=== PATIENT | female | born 1980 | race Caucasian/White ===

== ENCOUNTER 2017-10-21 12:24 | Inpatient (IN) | payer MEDICAID ==
[2017-10-21] MEDS: LACTATED RINGER'S 1,000 ML IV (14:14)
[2017-10-21] MEDS: AMPICILLIN 2 GM/NS (PMX) 100 ML IV (14:21)
[2017-10-21] MEDS ORDERED: CARBOPROST 250 MCG INJ IM ×2 (14:30→17:30)
[2017-10-21] MEDS ORDERED: BUTORPHANOL 2 MG INJ IV (14:30)
[2017-10-21] MEDS ORDERED: IBUPROFEN 600 MG TAB PO (14:30)
[2017-10-21] MEDS ORDERED: OXYTOCIN 30 UNITS/LR 500 ML IV ×2 (14:30→17:30)
[2017-10-21] MEDS ORDERED: MISOPROSTOL 200 MCG TAB PR ×2 (14:30→17:30)
[2017-10-21] MEDS ORDERED: METHYLERGONOVINE 0.2 MG INJ IM ×2 (14:30→17:30)
[2017-10-21 14:37] LABS: ADD MAN DIFF? NO
[2017-10-21 14:39] LABS: BASOPHILS % 0.2 % (0.0-2.0); EOSINOPHILS % 0.3 % (0.0-7.0); HEMATOCRIT 35.2 % (37.0-47.0); HEMOGLOBIN 12.6 g/dl (12.0-16.0); LYMPHOCYTES # 2.3 10^3/ul (0.8-2.9); LYMPHOCYTES % 20.5 % (15.0-51.0); MEAN CORPUSCULAR HEMOGLOBIN 31.3 pg (29.0-33.0); MEAN CORPUSCULAR HGB CONC 35.8 g/dl (32.0-37.0); MEAN CORPUSCULAR VOLUME 87.3 fl (82.0-101.0); MONOCYTE # 0.4 10^3/ul (0.3-0.9); MONOCYTES % 3.6 % (0.0-11.0); NEUTROPHIL # 8.2 10^3/ul (1.6-7.5); NEUTROPHILS % 74.9 % (39.0-77.0); PLATELET COUNT 321 10^3/UL (140-415); RED BLOOD COUNT 4.03 10^6/ul (4.20-5.40); RED CELL DISTRIBUTION WIDTH 13.2 % (11.5-14.5)
[2017-10-21] MEDS: OXYTOCIN 30 UNITS/LR 500 ML IV ×3 (14:45→20:54)
[2017-10-21] MEDS: LIDOCAINE 1% (MPF) 30 ML INJ INJ (14:48)
[2017-10-21 14:53] LABS: INR 0.85; PROTIME 11.7 Sec (11.9-14.9); PT RATIO 0.9
[2017-10-21 14:54] LABS: PARTIAL THROMBOPLASTIN TIME 31.1 Sec (25.0-35.0)
[2017-10-21 15:03] LABS: RAPID PLASMA REAGIN NONREACTIVE (NR)
[2017-10-21 15:52] LABS: HEPATITIS B SURFACE ANTIGEN NEGATIVE (NEGATIVE)
[2017-10-21 16:54] LABS: HIV 1&2 ANTIBODY NEGATIVE (NEGATIVE)
[2017-10-21] MEDS: LACTATED RINGER'S 1,000 ML IV* (17:20)
[2017-10-21] MEDS ORDERED: DIPHENHYDRAMINE 25 MG CAP PO (17:30)
[2017-10-21] MEDS ORDERED: ACETAMINOPHEN 325 MG TAB PO (17:30)
[2017-10-21] MEDS ORDERED: ZOLPIDEM 5 MG TAB PO (17:30)
[2017-10-21] MEDS ORDERED: HYDROCODONE/APAP (5/325) TAB PO (17:30)
[2017-10-21 17:54] LABS: AMPHETAMINE/METHAMPHETAMINE Negative (NEGATIVE); BARBITURATES Negative (NEGATIVE); BENZODIAZEPINES Negative (NEGATIVE); CANNABINOIDS Negative (NEGATIVE); COCAINE Negative (NEGATIVE); OPIATES Negative (NEGATIVE)
[2017-10-21] MEDS: BENZOCAINE 20% 56 ML SPRAY TOP (18:07)
[2017-10-21] MEDS: IBUPROFEN 800 MG TAB PO ×2 (18:07→23:45)
[2017-10-21] MEDS: WITCH HAZEL/GLYCERIN PAD PR (18:07)
[2017-10-21] MEDS: LANOLIN 7 GM TUBE TOP (18:08)
[2017-10-21] MEDS ORDERED: AMPICILLIN 1 GM/NS (PMX) 50 ML IV (18:30)
[2017-10-22] MEDS: LACTATED RINGER'S 1,000 ML IV* (01:20)
[2017-10-22] MEDS: IBUPROFEN 800 MG TAB PO ×3 (06:12→17:38)
[2017-10-22] MEDS: SENNA/DOCUSATE NA (8.6MG/50MG) TAB PO (08:36)
[2017-10-22 09:25] LABS: ADD MAN DIFF? NO
[2017-10-22 09:36] LABS: WHITE BLOOD COUNT 10.9 10^3/ul (4.8-10.8)
[2017-10-22 09:36] LABS: BASOPHILS % 0.2 % (0.0-2.0); EOSINOPHILS # 0.1 10^3/ul (0.0-0.5); EOSINOPHILS % 0.7 % (0.0-7.0); HEMATOCRIT 34.7 % (37.0-47.0); HEMOGLOBIN 12.1 g/dl (12.0-16.0); LYMPHOCYTES # 1.8 10^3/ul (0.8-2.9); LYMPHOCYTES % 16.6 % (15.0-51.0); MEAN CORPUSCULAR HEMOGLOBIN 31.2 pg (29.0-33.0); MEAN CORPUSCULAR HGB CONC 34.9 g/dl (32.0-37.0); MEAN CORPUSCULAR VOLUME 89.4 fl (82.0-101.0); MEAN PLATELET VOLUME 9.2 fl (7.4-10.4); MONOCYTE # 0.6 10^3/ul (0.3-0.9); MONOCYTES % 5.1 % (0.0-11.0); NEUTROPHIL # 8.4 10^3/ul (1.6-7.5); PLATELET COUNT 289 10^3/UL (140-415); RED BLOOD COUNT 3.88 10^6/ul (4.20-5.40); RED CELL DISTRIBUTION WIDTH 13.3 % (11.5-14.5)
[2017-10-23] MEDS: IBUPROFEN 800 MG TAB PO ×3 (01:10→11:53)
[2017-10-23] MEDS: WITCH HAZEL/GLYCERIN PAD PR (06:53)
[2017-10-23] MEDS: VARICELLA VACCINE LIVE/PF 1,350 UNIT/0.5 ML ML SC* (09:00)
[2017-10-23] MEDS: DIPHTH/TET/ACEL PERTUSS (ADULT) 0.5 ML VIAL IM* (09:00)
[2017-10-23] MEDS: MEASLES,MUMPS,RUBELLA VACCINE INJ SC* (09:00)
[2017-10-23] MEDS: MAGNESIUM HYDROXIDE 30ML CUP PO (11:57)
[2017-10-23 12:01] LABS: RUBELLA ANTIBODY - IGG 3.25 index
[2017-10-24 12:47] LABS: RUBELLA ANTIBODY - IGM <20.00 AU/mL
== END 2017-10-23 14:10 | disposition home or self-care (01) | DRG 775 ==
LOC: OBT 12:24 → L-D 12:24 → OBT 13:27 → L-D 13:18 → PP1 17:18
PROVIDERS: Obstetrics & Gynecology
PROC: 10E0XZZ Delivery of Products of Conception, External Approach (ICD-10-PCS; principal; 2017-10-21)
DX: O80 Encounter for full-term uncomplicated delivery (principal); Z37.0 Single live birth; Z3A.37 37 weeks gestation of pregnancy
CPT/HCPCS: 80307; 85025; 85610; 85730; 86592; 86703; 86762; 86900; 86901; 87340; 90715; 90716; 99464